=== PATIENT | female | born 1995 | race Caucasian/White ===

== ENCOUNTER 2022-08-11 23:26 | Emergency (ER) | payer OTHER ==
[~2022-08-11] VITALS: Ht 157.5 cm; Wt 59.0 kg
[2022-08-11 23:30] VITALS: BP 127/79
--- NOTE | 2022-08-11 23:43 | NUR ---
TO LOBBY FOLLOWING TRIAGE
[2022-08-12 00:22] LABS: BASOPHILS % (AUTO) 0.3 % (0.0-2.0); HEMATOCRIT 45.2 % (36-48); HEMOGLOBIN 15.4 g/dL (12.0-16.0); LYMPHOCYTES # (AUTO) 0.6 K/uL (2.5-16.5); LYMPHOCYTES % (AUTO) 6.1 % (20.5-51.1); MEAN CORPUSCULAR HEMOGLOBIN 33 pg (27-31); MEAN CORPUSCULAR HGB CONC 34 g/dL (33-37); MEAN CORPUSCULAR VOLUME 96.7 fL (80-94); MONOCYTES # (AUTO) 0.3 K/uL (0.8-1.0); NEUTROPHILS # (AUTO) 8.2 K/uL (1.8-7.7); NEUTROPHILS % (AUTO) 90.6 % (42.2-75.2); PLATELET COUNT (AUTO) 266 K/uL (140-450); RED BLOOD CELL COUNT(AUTO) 4.67 MIL/uL (4.20-5.40); RED CELL DISTRIBUTION WIDTH 13.9 % (11.6-13.7); WHITE BLOOD COUNT (AUTO) 9.1 K/uL (4.8-10.8)
[2022-08-12 00:43] LABS: ALBUMIN 3.9 g/dL (3.4-5.0); ANION GAP 24.4 (8-16); CARBON DIOXIDE 18.8 mmol/L (21-32); CREATININE 0.8 mg/dL (0.6-1.3); POTASSIUM 4.2 mmol/L (3.5-5.1); TOTAL BILIRUBIN 0.5 mg/dL (0.0-1.0)
--- NOTE | 2022-08-12 01:42 | NUR ---
Dr. Mcpherson examining patient.
[2022-08-12] MEDS ORDERED: NACL 0.9% 1,000 ML IV ONE (01:50)
--- NOTE | 2022-08-12 02:06 | NUR ---
Patient reported, had chills, bodyache. Dr. Mcpherson notified.
[2022-08-12] MEDS ORDERED: KETOROLAC 15 MG/ML VIAL IVP ONE (02:30)
[2022-08-12] MEDS ORDERED: buprenorphine HCL 2 MG sublingual tab SL ONE ×3 (03:10→05:05)
--- NOTE | 2022-08-12 04:57 | NUR ---
Patient reported, in pain, chills, Dr. Mcpherson notified.
[2022-08-12] MEDS ORDERED: LORazepam 2 MG/ML VIAL IVP ONE (05:30)
[2022-08-12] MEDS ORDERED: ONDA-188 SL (05:33)
[2022-08-12] MEDS ORDERED: BEN50 PO (05:33)
[2022-08-12] MEDS ORDERED: CLON0.1T16 PO (05:33)
[2022-08-12] MEDS ORDERED: LIB25 PO (05:33)
[2022-08-12 06:17] VITALS: BP 114/75
--- NOTE | 2022-08-12 06:17 | NUR ---
Patient discharged with v/s stable. Written and verbal after care instructions given and explained. Patient alert, oriented and verbalized understanding of instructions. Wheel Chair Assisted with to car. All questions addressed prior to discharge. ID band removed. Patient advised to follow up with PMD. Rx of Catapres, Benadryl, Librium and Zofran given. Patient educated on indication of medication including possible reaction and side effects. Opportunity to ask questions provided and answered.
== END 2022-08-12 00:07 | disposition home or self-care (01) ==
LOC: MED 23:26
DX: F10.239 Alcohol dependence with withdrawal, unspecified (principal); F11.23 Opioid dependence with withdrawal; Y90.9 Presence of alcohol in blood, level not specified
CPT/HCPCS: 36415; 80053; 85025; 96361; 96374; 96375; 99285; G0482; J1885; J2060; J7030

== ENCOUNTER 2024-01-13 23:38 | Emergency (ER) | payer OTHER ==
[~2024-01-13] VITALS: Ht 157.5 cm; Wt 64.4 kg
[~2024-01-13 23:38] MED LIST: BEN50 PO; CHLO-836 PO; CLON0.1T16 PO; ONDA-188 SL
[2024-01-13 23:52] VITALS: BP 126/90; PULSE 94; RESP 16; TEMP 97.4; O2SAT 99
[2024-01-14] MEDS: ONDANSETRON 4 MG ODT PO ONE (01:57)
[2024-01-14] MEDS ORDERED: ONDA-188 SL (02:19)
[2024-01-14 02:33] VITALS: BP 124/90; PULSE 99; RESP 16; O2SAT 100
== END 2024-01-14 02:34 | disposition home or self-care (01) ==
LOC: MED 23:38
DX: F10.129 Alcohol abuse with intoxication, unspecified (principal); Z86.69 Personal history of other diseases of the nervous system and sense organs; Z79.899 Other long term (current) drug therapy; Z88.0 Allergy status to penicillin; Y90.9 Presence of alcohol in blood, level not specified
CPT/HCPCS: 99283; Q0162

== ENCOUNTER 2024-04-21 17:53 | Emergency (ER) | payer OTHER ==
[~2024-04-21] VITALS: Ht 157.5 cm; Wt 63.5 kg
[~2024-04-21 17:53] MED LIST changes: +CHLO-757 PO; -CHLO-836 PO
[2024-04-21 18:09] VITALS: BP 99/72; PULSE 54; RESP 18; TEMP 97.4; O2SAT 99
[2024-04-21 19:32] LABS: BASOPHILS % (AUTO) 0.3 % (0.0-2.0); HEMATOCRIT 37.9 % (36-48); LYMPHOCYTES # (AUTO) 1.6 K/uL (2.5-16.5); LYMPHOCYTES % (AUTO) 14.7 % (20.5-51.1); MEAN CORPUSCULAR HEMOGLOBIN 33 pg (27-31); MEAN CORPUSCULAR HGB CONC 34 g/dL (33-37); MEAN CORPUSCULAR VOLUME 94.7 fL (80-94); MONOCYTES # (AUTO) 0.6 K/uL (0.8-1.0); MONOCYTES % (AUTO) 5.2 % (1.7-9.3); NEUTROPHILS # (AUTO) 8.7 K/uL (1.8-7.7); NEUTROPHILS % (AUTO) 79.8 % (42.2-75.2); PLATELET COUNT (AUTO) 287 K/uL (140-450); RED CELL DISTRIBUTION WIDTH 13.5 % (11.6-13.7); WHITE BLOOD COUNT (AUTO) 10.9 K/uL (4.8-10.8)
[2024-04-21] MEDS: PANTOPRAZOLE 40 MG INJ VIAL IVP ONE (19:37)
[2024-04-21 19:42] LABS: ANION GAP 12.2 (8-16); CARBON DIOXIDE 29.8 mmol/L (21-32)
[2024-04-21 19:42] LABS: APPEARANCE,URINE CLEAR (CLEAR); BILIRUBIN,URINE NEGATIVE (NEGATIVE); BLOOD, URINE NEGATIVE (NEGATIVE); COLOR,URINE YELLOW (YELLOW); LEUKOCYTE ESTERASE ,URINE 2+ (NEGATIVE); NITRITE, URINE NEGATIVE (NEGATIVE); PH,URINE 6.5 (5.0-9.0); PROTEIN,URINE NEGATIVE (NEGATIVE); UGLUCOSE NEGATIVE (NEGATIVE); UROBILINOGEN,URINE 0.2 EU/dL (0.2 - 1)
[2024-04-21 19:48] LABS: ALBUMIN 3.6 g/dL (3.4-5.0); BILIRUBIN,DIRECT 0.2 mg/dL (0.0-0.3); TOTAL PROTEIN, SERUM 7.5 g/dL (6.4-8.2)
[2024-04-21 20:00] LABS: BACTERIA,URINE >30 (MANY) /HPF (None Seen); RBC,URINE 0-5 /HPF (0-5)
[2024-04-21 20:01] LABS: MUCUS,URINE None Seen /LPF (None Seen); SQUAMOUS EPITHELIAL CELL,UR 4-10 (MOD) /LPF (0-3 (FEW)); TRICHOMONAS,URINE None Seen /HPF (None Seen); WHITE BLOOD CELL CASTS,URINE None Seen /LPF (None Seen); YEAST,URINE None Seen /HPF (None Seen)
[2024-04-21 21:51] VITALS: PULSE 54; RESP 12; O2SAT 94
[2024-04-21] MEDS ORDERED: cefTRIAXone 1,000 MG VIAL ONE (23:14)
[2024-04-22] MEDS ORDERED: CIPR500T4 PO (00:03)
[2024-04-22] MEDS ORDERED: METO-485 PO (00:05)
== END 2024-04-22 00:19 | disposition home or self-care (01) ==
LOC: MED 17:53
DX: N39.0 Urinary tract infection, site not specified (principal); Z88.0 Allergy status to penicillin; Z79.899 Other long term (current) drug therapy
CPT/HCPCS: 36415; 76705; 80048; 80076; 81001; 81025; 82150; 83690; 85025; 87040; 87086; 96365; 96375; 99285; C9113; J0696; Q0092; 87186

== ENCOUNTER 2024-07-09 17:47 | Emergency (ER) | payer OTHER ==
[~2024-07-09] VITALS: Ht 157.5 cm; Wt 64.5 kg
[~2024-07-09 17:47] MED LIST changes: +CIPR500T4 PO; +METO-485 PO
[2024-07-09 17:56] VITALS: BP 141/90; PULSE 75; RESP 17; TEMP 98.1; O2SAT 98
== END 2024-07-09 18:35 | disposition left against medical advice (07) ==
LOC: MED 17:47
DX: F10.129 Alcohol abuse with intoxication, unspecified (principal); Z88.0 Allergy status to penicillin; Z53.21 Procedure and treatment not carried out due to patient leaving prior to being seen by health care provider